=== PATIENT | female | born 1950 | race Caucasian/White ===

== ENCOUNTER → 2022-12-10 | Outpatient (CLI) | payer MEDICARE, OTHER ==
--- NOTE | 2022-12-10 12:10 | CT ---
EXAMINATION TYPE: CT chest wo con CT DLP: 112.1 mGycm, Automated exposure control for dose reduction was used. DATE OF EXAM: 12/10/2022 11:50 AM COMPARISON: None CLINICAL INDICATION:Female, 72 years old with history of J44.9 CHRONIC OBSTRUCTIVE PULMO, Z72.0 tobac co use; PHH, COPD TECHNIQUE: Multiple axial images were obtained through the chest without IV contrast. Lack of IV or o ral contrast limits evaluation of solid and hollow organ viscera. . Coronal and sagittal reformats re viewed. FINDINGS: LUNGS/ PLEURA: No pleural effusion, pneumothorax, focal consolidation. Left lower lobe 4.7 mm pulmona ry nodule (series 4, image 43). Right midlung 3.6 mm pulmonary nodule (series 4, image 22). Right upp er lobe anterior 4.0 mm pulmonary nodule (series 4, image 20). Right upper lobe 1.9 mm pulmonary nodu le (series 4, image 12). Minimal biapical pleural-parenchymal scarring. Minimal right lower lobe sub segmental atelectasis. AIRWAY: Patent and unremarkable.. HEART: Size within normal limits. No pericardial effusion. Aortic valvular mitral annulus calcificati ons. MEDIASTINUM: Suggested enlarged pretracheal lymph nodes identified measuring up to 1.3 cm short axis. Evaluation is limited due to lack of intravenous contrast. VASCULATURE: No aortic aneurysm. MUSCULOSKELETAL: No acute osseous abnormalities SOFT TISSUES/LYMPH NODES: Unremarkable. LOWER NECK: No significant findings. UPPER ABDOMEN: Calcified granuloma within the spleen. IMPRESSION: 1. Multiple enlarged nonspecific pretracheal lymph nodes. Further evaluation is recommended with cons ideration for CT chest with IV contrast. 2. Few scattered pulmonary nodules measuring up to 4.7 mm.
== END | disposition home or self-care (01) ==
LOC: RADCTMAIN 11:33
PROVIDERS: ATTEND Family Medicine
DX: J44.9 Chronic obstructive pulmonary disease, unspecified (principal); R91.8 Other nonspecific abnormal finding of lung field; R59.0 Localized enlarged lymph nodes; Z72.0 Tobacco use
CPT/HCPCS: 71250

== ENCOUNTER → 2023-01-29 | Outpatient (CLI) | payer MEDICARE, OTHER ==
[2023-01-29 14:38] LABS: African American GFR (CKD) 55 (>60 ml/min/1.73 sqM); Blood Urea Nitrogen 13 mg/dL (7-17); Non-African American GFR(CKD) 48 (>60 ml/min/1.73 sqM)
--- NOTE | 2023-02-02 08:31 | CT ---
EXAMINATION TYPE: CT chest w con DATE OF EXAM: 01/29/2023 COMPARISON: 12/10/2022 HISTORY: LOCALIZED ENLARGED LYMPH NODES AND PARATRACHEAL LYMPHADENOPATHY CT DLP: 117.40 mGycm Automated exposure control for dose reduction was used. CONTRAST: CT scan of the chest is performed with IV Contrast, patient injected with 80ML mL of Isovue 300. FINDINGS: LUNGS: Again noted are scattered sub-5 mm pulmonary nodules within the parenchymal, subpleural and pl eural locations. Mild lower lobe bronchial wall thickening noted. No increasing or new pulmonary nodu les or masses seen. No consolidation or volume loss. There is no pleural effusion or pneumothorax see n. The tracheobronchial tree is patent. MEDIASTINUM: High right paratracheal adenopathy measuring 3.5 x 2.4 cm. Low right paratracheal adenop athy measuring 2.8 x 2.7 cm increased from prior study. No hilar adenopathy seen. UPPER ABDOMEN: No significant abnormality appreciated. OTHER: No additional significant abnormality is seen. IMPRESSION: 1. Increasing right paratracheal adenopathy. Consider tissue diagnosis. 2. Stable scattered sub-5 mm pulmonary nodularity.
== END | disposition home or self-care (01) ==
LOC: RADCTMAIN 13:10
PROVIDERS: ATTEND Family Medicine
DX: R59.0 Localized enlarged lymph nodes (principal); R93.89 Abnormal findings on diagnostic imaging of other specified body structures; R91.8 Other nonspecific abnormal finding of lung field
CPT/HCPCS: 82565; 84520; 71260; 36415; Q9967

== ENCOUNTER 2023-03-10 11:27 | Day surgery (SDC) | payer MEDICARE, OTHER ==
[2023-03-08 09:00] VITALS: BMI 20.2
[~2023-03-10 11:27] MED LIST: LACTATED RINGERS 1,000 ML IV SCH
[2023-03-10] MEDS ORDERED: ONDANSETRON 4 MG/2 ML VIAL ONE (12:18)
[2023-03-10] MEDS ORDERED: IPRATROPIUM-ALBUTEROL 3 ML NEB ONE (12:18)
[2023-03-10] MEDS ORDERED: DEXAMETHASONE SOD PHOSPHATE 4 MG/ML 1 ML VIAL IVP ONE (12:23)
[2023-03-10] MEDS ORDERED: IPRATROPIUM-ALBUTEROL 3 ML NEB INHALATION STA (12:23)
[2023-03-10 12:25] VITALS: RESP 18
[2023-03-10] MEDS ORDERED: ROCURONIUM 10 MG/ML (5 ML VIAL) IV ONE (12:57)
[2023-03-10] MEDS ORDERED: PROPOFOL 10 MG/ML 20 ML VIAL IV ONE (12:57)
[2023-03-10] MEDS ORDERED: fentaNYL (PF) 50 MCG/ML 2 ML AMP ONE (12:57)
[2023-03-10] MEDS ORDERED: SUCCINYLCHOLINE CHLORIDE 200 MG/10 ML VIAL IV ONE (12:57)
[2023-03-10] MEDS ORDERED: NEOSTIGMINE 1 MG/ML 10 ML VIAL ONE (12:57)
[2023-03-10] MEDS ORDERED: LIDOCAINE 1% INJ 10MG/ML (20 ML MDV) ONE (12:57)
[2023-03-10] MEDS ORDERED: GLYCOPYRROLATE 0.2 MG/ML 2 ML VIAL ONE (12:57)
--- NOTE | 2023-03-10 13:51 | P.PCN ---
Date of Procedure: 03/10/23 Preoperative Diagnosis: Paratracheal lymphadenopathy Postoperative Diagnosis: Paratracheal lymphadenopathy Procedure(s) Performed: Endobronchial ultrasound Chest markedly less than the paratracheal lymphadenopathy Anesthesia: PRIYAA Surgeon: Diya Espinal Pathology: other Condition: stable Disposition: same day Operative Findings: After obtaining the consent the patient was taken to the OR suite he was intubated and put on MV by anesthesia then the scope was advanced to the ET tube until the Trachea was seen and it was normal and then the rigoberto appears normal then the scope advanced to the left main and TEJA LB1-LB3 were seen and no endobronchial lesions were seen then the scope advanced to the lingula and the LB4 and LB5 were seen and no endobronchial lesions were seen the scope retracted and advanced to the left lower lobes LB6 to LB12 were seen one by one and no endobronchial lesions, then the scope was retracted back to the rigoberto and advanced to the Right main and RUL RB1 and RB2 and RB3 were seen one by one and no endobronchial lesions were seen the scope then retracted and advanced to the BI and RML RB4 and RB5 were seen and no endobronchial lesions were seen then it was retracted and advanced to the RLL RB6 to RB12 were seen one by one and no endobronchial lesions. Then EBUS was used and the lymph nodes were examined. Direct measurement of the mediastinal lymph nodes revealed a and conglomeration of lymph nodes in the anterior tracheal /paratracheal area approximately originating from the level of rigoberto and extending approximately 2 cm into the distal trachea. The largest of the lymph node is around 3 cm in size. Using direct ultrasound visualization, transbronchial needle aspirate of the paratracheal lymphadenopathy was done using a 22-gauge with a Vizishot needle. No other mediastinal lymph nodes a at the various mediastinal stations identified. A total of 7-8 passes were obtained. No complications. The endobronchial ultrasound was removed and the flexible bronchoscope was inserted for therapeutic airway suctioning and cleaning. The patient was extubated and transferred to recovery in stable condition.
[2023-03-10 14:16] VITALS: TEMP 97
[2023-03-10 15:36] VITALS: BP 119/64; PULSE 77
== END 2023-03-10 15:10 | disposition home or self-care (01) ==
LOC: ORWHC2ENDO 11:27
PROVIDERS: ATTEND Internal Medicine Critical Care Medicine
DX: R59.0 Localized enlarged lymph nodes (principal); I25.10 Atherosclerotic heart disease of native coronary artery without angina pectoris; J44.9 Chronic obstructive pulmonary disease, unspecified; F17.200 Nicotine dependence, unspecified, uncomplicated; Z77.120 Contact with and (suspected) exposure to mold (toxic); Z88.9 Allergy status to unspecified drugs, medicaments and biological substances; Z88.2 Allergy status to sulfonamides; Z79.82 Long term (current) use of aspirin; Z98.890 Other specified postprocedural states; Z79.899 Other long term (current) drug therapy
CPT/HCPCS: 88305; 88173; 88184; 88185; 88342; 88341; 31629; 31652; J0330; J1100; J2710; J2405; J2001; J3010; J2704

== ENCOUNTER → 2023-03-11 | Outpatient (CLI) | payer MEDICARE, OTHER ==
--- NOTE | 2023-03-14 12:35 | PE ---
EXAMINATION TYPE: PET CT fusion skull to thigh DATE OF EXAM: 03/11/2023 COMPARISON: CT chest 12/10/2022 Prior PET/CT: None HISTORY: Lymphadenopathy TECHNIQUE: Following the intravenous administration of 10.1 mCi of F-18 FDG, whole body images are p erformed from the skull base to the midthigh. Images are reviewed on the computer in the coronal, ax ial, and sagittal planes. Reconstructed rotating images are created on independent workstation and r eviewed on the computer. A localization and attenuation correction CT is performed in conjunction w ith the PET scan. DLP: 171.69 mGycm SCAN: Initial Blood glucose: 69 mg/dL Average Mediastinum SUV: 2.2 Average Liver SUV: 2.25 FINDINGS: NECK: There is a prominent lymph node posterior to the sternocleidomastoid muscle near the right sup raclavicular region, image 44, SUV 15.74. Small posterior right neck triangle uptake is present, imag e 44, SUV 3.73. There is additional intense uptake within the right supraclavicular region, image 48, SUV 14.84. Some milder abnormal uptake is within the left supraclavicular region, image 50, SUV 7.38 . THORAX: Abnormal uptake is in the right axillary region SUV 5.59, image 53. Abnormal uptake is within the right supraclavicular region inferior to the thyroid, image 53, SUV 13.87. Additional left supra clavicular adenopathy is present with SUV 9.16. Small left axillary lymph node with uptake is present SUV 4.44. There is intense uptake within the superior mediastinum, SUV 9.03 example image 68. Pretracheal lymph adenopathy is present, SUV 6.03, image 77. Mild uptake is within the subcutaneous carinal region, image 84, SUV 3.8. There may be some mild uptake at the left costovertebral junction, image 101, SUV 3.93. This could be related to degenerative change. ABDOMEN: Abnormal uptake is in the celiac axis region, image 132, SUV 6.29. There is intense uptake within the hepatic flexure, example image 166, SUV 8.47. There are additional areas of uptake scattered within the colon with a more typical normal uptake. PELVIS: Subcutaneous uptake is within the inferior gluteal fold, image 218, SUV 2.54. OSSEOUS STRUCTURES: There is a focus of radiotracer within the left pubic symphysis, image 218, SUV [address]: No suspicious acute changes. The abnormal lymphadenopathy is poorly defined on the l ocalization CT. COMPARISON: Lymphadenopathy is evident on the comparison study. This may be increasing from the comp arison study. IMPRESSION: 1. Multiple focal intense areas of uptake within the lower neck, supraclavicular regions bilaterally, axillary regions bilaterally, mediastinum and subcarinal regions suspicious for neoplasm within mult iple lymph node chains. 2. Abnormal uptake within the celiac axis region likely related to abnormal adenopathy. 3. Questionable abnormal uptake versus normal uptake within the hepatic flexure. Consider colonoscopy for additional evaluation. 4. Uptake within the medial left pubic symphysis suspicious for metastatic disease. 5. Subcutaneous uptake posterior midline gluteal fold may be metastasis or infection.
== END | disposition home or self-care (01) ==
LOC: RADPETMAIN 12:09
PROVIDERS: ATTEND Internal Medicine Critical Care Medicine
DX: R59.0 Localized enlarged lymph nodes (principal)
CPT/HCPCS: 78815; A9552

== ENCOUNTER → 2023-06-17 | Outpatient (CLI) | payer MEDICARE, OTHER | END | disposition home or self-care (01) | LOC: RADCTMAIN 09:21 | PROVIDERS: ATTEND Internal Medicine Critical Care Medicine | DX: Z53.9 Procedure and treatment not carried out, unspecified reason (principal) ==

== ENCOUNTER → 2023-06-17 | Outpatient (CLI) | payer MEDICARE, OTHER ==
[2023-06-17 10:29] LABS: African American GFR (CKD) 56 (>60 ml/min/1.73 sqM); Blood Urea Nitrogen 15 mg/dL (7-17); Non-African American GFR(CKD) 49 (>60 ml/min/1.73 sqM)
--- NOTE | 2023-06-17 12:27 | CT ---
EXAMINATION: CT CHEST, ABDOMEN AND PELVIS WITH IV CONTRAST DATE OF EXAMINATION: 06/17/2023. COMPARISON: PET/CT on 03/11/2023.. INDICATION: Lymphadenopathy. PROCEDURE: Axial CT of the chest, abdomen and pelvis was performed following the intravenous adminis tration of 80 ml Isovue 300. Coronal and sagittal reformats were performed. CT dose lowering techniqu es were used, to include: automated exposure control, adjustment for patient size, and/or use of iter ative reconstruction. FINDINGS: CHEST: Mediastinum and Bessy: Mediastinal adenopathy is again seen. There is a lymph node in the presacral re gion measuring 2.3 cm in diameter, previously approximately 1.8 cm in diameter. The supraclavicular r egion is not well evaluated on this examination Pleural and Pericardial spaces: There are no pleural or pericardial effusions. Cardiovascular: There is mild vascular calcification throughout the thoracic aorta without evidence o f aneurysmal dilation or dissection. Mild coronary artery calcification is seen in the left anterior descending. Pulmonary Artery: There are no central pulmonary arterial filling defects. Lung Parenchyma and Airways: 2 mm nodule in the right upper lobe on series 5 image 22 is unchanged. T here is some scattered mild bronchial wall thickening and inflammatory airway changes otherwise noted . 4.6 cm left lower lobe nodule on series 5 image 40 is unchanged. ABDOMEN: Liver and Biliary system: Normal. Adrenal glands: Normal. Kidneys and ureters: Normal. Spleen: There is a calcified granuloma within the spleen.. Pancreas: Normal. Gallbladder: Normal. Lymph nodes, Peritoneum and mesentery: There is no mesenteric or retroperitoneal lymphadenopathy. Gastrointestinal tract: There are no dilated loops of bowel or free intraperitoneal air. . The appe ndix is normal. There is moderate to significant sigmoid colonic diverticulosis without evidence of d iverticulitis. Aorta/IVC: There is mild vascular calcification throughout the abdominal aorta without evidence of aneurysmal dilation or dissection.. IVC normal. Abdominal wall: Normal. PELVIS: Fluid: There is no free fluid in the pelvis. Lymph Nodes: There is no pelvic or inguinal lymphadenopathy.. Urinary bladder: Normal. BONES: Scattered degenerative disc and facet changes are seen throughout the spine. There are no acu te osseous abnormalities.. ADDITIONAL SIGNIFICANT FINDINGS: None. IMPRESSION: 1. Increase size of pretracheal lymph node. 2. Supra clavicular region is not well evaluated on this examination. 3. There does not appear to be definitive adenopathy within the abdomen or pelvis. 4. Diverticulosis without evidence of diverticulitis. 5. Unchanged pulmonary nodules.
== END | disposition home or self-care (01) ==
LOC: RADCTMAIN 09:47
PROVIDERS: ATTEND Internal Medicine Hematology & Oncology
DX: K57.30 Diverticulosis of large intestine without perforation or abscess without bleeding (principal); J44.9 Chronic obstructive pulmonary disease, unspecified; R59.0 Localized enlarged lymph nodes; R91.8 Other nonspecific abnormal finding of lung field
CPT/HCPCS: 82565; 84520; 71260; 74177; 36415; Q9967

== ENCOUNTER → 2023-07-22 | Outpatient (CLI) | payer MEDICARE, OTHER ==
[2023-07-22 19:28] LABS: Appearance,Urine Cloudy (Clear); Bilirubin,Urine Negative (Negative); Blood,Urine Negative (Negative); Color,Urine Yellow (Yellow); Ketones,Urine Negative (Negative); Nitrite,Urine Negative (Negative); PH, Urine 6.5; Specific Gravity,Urine 1.012 (1.001-1.030); Urobilinogen,Urine 0.2 E.U./DL
[2023-07-22 19:33] LABS: Bacteria,Urine 2+ (None Seen)
[2023-07-22 19:39] LABS: Basophils # (A) 0.11 X 10*3/uL (0.00-0.10); Basophils % (A) 1.3 %; Eosinophils # (A) 0.68 X 10*3/uL (0.04-0.35); Eosinophils % (A) 8.2 %; HCT 35.6 % (37.2-46.3); HGB 10.8 g/dL (12.0-15.0); Lymphocytes # (A) 0.95 X 10*3/uL (0.90-5.00); Lymphocytes % (A) 11.4 %; MCHC 30.3 g/dL (32.0-37.0); MCV 85.6 FL (80.0-97.0); Mean Platelet Volume 12.2 FL (9.5-12.2); Monocytes # (A) 0.77 X 10*3/uL (0.20-1.00); Monocytes % (A) 9.3 %; NRBC Per 100 WBC 0 X 10*3/uL (0.00-0.01); Neutrophils # (A) 5.78 X 10*3/uL (1.80-7.70); Neutrophils % (A) 69.6 %; Platelet Count 339 X 10*3/uL (140-440); RBC 4.16 X 10*6/uL (4.10-5.20); RDW 15.8 % (11.5-14.5); WBC 8.31 X 10*3/uL (4.50-10.00)
[2023-07-22 21:11] LABS: Chloride 107 mmol/L (96-109); Glucose 81 mg/dL (70-110); Potassium 4.5 mmol/L (3.5-5.5); Sodium 141 mmol/L (135-145)
== END | disposition home or self-care (01) ==
LOC: LABPAT 12:39
PROVIDERS: ATTEND Thoracic Surgery (Cardiothoracic Vascular Surgery)
DX: Z01.812 Encounter for preprocedural laboratory examination (principal); R59.0 Localized enlarged lymph nodes; R58 Hemorrhage, not elsewhere classified; R53.83 Other fatigue; Z79.899 Other long term (current) drug therapy
CPT/HCPCS: 36415; 80051; 81001; 82565; 82947; 84520; 85025; 85730; 86850; 86900; 86901; 87086

== ENCOUNTER 2023-08-02 11:13 | Day surgery (SDC) | payer MEDICARE, OTHER ==
[~2023-08-02 11:13] MED LIST changes: -LACTATED RINGERS 1,000 ML IV SCH; +MIDAZOLAM 2 MG/2 ML VIAL IV PRN
[2023-08-02] MEDS: LACTATED RINGERS 1,000 ML IV SCH (11:37)
[2023-08-02] MEDS: ONDANSETRON 4 MG/2 ML VIAL IVP ONE (11:55)
[2023-08-02] MEDS: DEXAMETHASONE SOD PHOSPHATE 4 MG/ML 1 ML VIAL IV ONE (11:55)
[2023-08-02] MEDS ORDERED: SUGAMMADEX SODIUM 200 MG/2 ML SDV IV ONE (13:10)
[2023-08-02] MEDS ORDERED: SUCCINYLCHOLINE CHLORIDE 200 MG/10 ML VIAL IV ONE (13:10)
[2023-08-02] MEDS ORDERED: LIDOCAINE 1% INJ 10MG/ML (20 ML MDV) ONE (13:10)
[2023-08-02] MEDS ORDERED: ROCURONIUM 10 MG/ML (5 ML VIAL) IV ONE (13:10)
[2023-08-02] MEDS ORDERED: fentaNYL (PF) 50 MCG/ML 2 ML AMP ONE (13:10)
[2023-08-02] MEDS ORDERED: HYDROmorphone (PF) 1 MG/ML ONE (13:10)
[2023-08-02] MEDS ORDERED: PROPOFOL 10 MG/ML 20 ML VIAL IV ONE (13:10)
--- NOTE | 2023-08-02 14:15 | P.OP ---
Date of Procedure: 08/02/23 Preoperative Diagnosis: Mediastinal Lymphadenoapthy Postoperative Diagnosis: Same Procedure(s) Performed: Mediastinoscopy with Biopsy Anesthesia: RIKY Surgeon: Osbaldo Marquez Estimated Blood Loss (ml): 15 Pathology: other (Pre-tracheal lymph node for fresh (flow), permanent and culture) Condition: stable Disposition: PACU Indications for Procedure: This patient is a 73 year-old female who was noted to have mediastinal lymphadenopathy on CT Chest. EBUS was non-diagnostic. She is here for mediastinoscopy Operative Findings: Large pre-tracheal lymph node biopsied. Description of Procedure: The patient was brought back to the operating room and placed in the supine position. She was intubated and underwent general anesthesia. Antibiotics were given and she was prepped from the chin to the umbilicus. A transverse incision was made one finger breadth above the sternal notch. This was carried down through the subcutaneous tissues and the strap muscle was divided in the midline. The pre-tracheal fascia was incised with scissor and the isamar scissor was used to create the plane all the way down the trachea. The mediastinoscope was inserted and the pre-tracheal node was visualized. This was grasped with biopsy forceps. Multiple biopsies were taken. Area was packed with surgicel and no bleeding was noted. The strap muscle and deep dermis was closed with 2-0 vicryl and skin closed with monocryl and glue.
[2023-08-02] MEDS: HYDROmorphone 0.5 MG/0.5 ML SYRINGE IVP PRN (14:43)
[2023-08-02 15:08] VITALS: RESP 16; TEMP 97
[2023-08-02 16:26] VITALS: BP 149/66; PULSE 80
--- NOTE | 2023-08-02 18:35 | XR ---
EXAMINATION TYPE: XR chest 1V DATE OF EXAM: 08/02/2023 3:24 PM CLINICAL INDICATION:Female, 73 years old with history of Post mediastinoscopy; COMPARISON: Chest radiographs from 01/22/2023. TECHNIQUE: XR chest 1V Frontal view of the chest. FINDINGS: Lungs/Pleura: There is no evidence of pleural effusion, focal consolidation, or pneumothorax. Pulmonary vascularity: Unremarkable. Heart/mediastinum: Cardiomediastinal silhouette is unremarkable. Musculoskeletal: No acute osseous pathology. Other findings: None IMPRESSION: No acute cardiopulmonary disease/process. No evidence for pneumothorax.
== END 2023-08-02 16:43 | disposition home or self-care (01) ==
LOC: OR 11:13
PROVIDERS: ATTEND Thoracic Surgery (Cardiothoracic Vascular Surgery)
DX: L92.9 Granulomatous disorder of the skin and subcutaneous tissue, unspecified (principal); I35.0 Nonrheumatic aortic (valve) stenosis; J44.9 Chronic obstructive pulmonary disease, unspecified; F17.210 Nicotine dependence, cigarettes, uncomplicated; Z86.73 Personal history of transient ischemic attack (TIA), and cerebral infarction without residual deficits; Z79.51 Long term (current) use of inhaled steroids
CPT/HCPCS: 88305; 87070; 87205; 87075; 87116; 87102; 87206; 71045; 39402; J0330; J1100; J0690; J2405; J2001; J3010; J1170 ×2; J2704; 88312

== ENCOUNTER → 2023-09-14 | Outpatient (CLI) | payer MEDICARE, OTHER ==
[2023-09-14 13:36] LABS: African American GFR (CKD) 54 (>60 ml/min/1.73 sqM); Blood Urea Nitrogen 15 mg/dL (7-17); Non-African American GFR(CKD) 47 (>60 ml/min/1.73 sqM)
--- NOTE | 2023-09-16 17:12 | CT ---
EXAMINATION TYPE: CT ChestAbdPelvis w con CT DLP: 1009 mGycm, Automated exposure control for dose reduction was used. DATE OF EXAM: 09/14/2023 2:18 PM COMPARISON: 06/22/2023 CLINICAL INDICATION:Female, 73 years old with history of R59.0 LOCALIZED ENLARGED LYMPH NODES; PHH, L ocalized enlarged lymph nodes Technique: CT ChestAbdPelvis w con; Multiple axial images were obtained. Two-dimensional coronal and sagittal reconstructions were obtained. Contrast used:100 mL of Isovue 300 with IV Contrast, Oral contrast used: with Oral Contrast Findings: CHEST: LUNGS/ PLEURA: The lung parenchyma appears unremarkable. AIRWAY: Patent and unremarkable. HEART: Size within normal limits. Aortic valve leaflet calcifications are mild to moderate. Coronary artery atherosclerosis is mild. There is mitral valve annular calcifications. MEDIASTINUM: Conglomerate lymphadenopathy within the mediastinum in the right paratracheal region sagrario suring 33 right 21 mm not significantly changed grossly. Similar lymph nodes may be increased size. VASCULATURE: No aortic aneurysm. MUSCULOSKELETAL: Moderate disc degeneration changes are present throughout the thoracolumbar spine. SOFT TISSUES/LYMPH NODES: There is prominent right low neck lymph node measuring 12 mm in short axis this was FDG avid on prior PET. Other lymph nodes partially visualized in the neck measuring up to 11 mm series 3 image 2 left lower neck lymph node measuring 7 mm in short axis. LOWER NECK: No significant findings. ABDOMEN: ABDOMEN LIVER: Unremarkable GALLBLADDER AND BILE DUCTS: Unremarkable. PANCREAS: Unremarkable. SPLEEN: Unremarkable. ADRENAL GLANDS: Unremarkable. KIDNEYS AND URETERS: No evidence of hydronephrosis or renal calculus. The ureters are unremarkable. PELVIS BLADDER: Unremarkable REPRODUCTIVE: Unremarkable. ABDOMEN & PELVIS STOMACH AND BOWEL: No evidence of bowel obstruction. Scattered colonic diverticula.r PERITONEUM: No evidence of pneumoperitoneum or free fluid. VASCULATURE: No evidence of aortic aneurysm. MUSCULOSKELETAL: No acute osseous abnormalities. Moderate disc degeneration changes are present throu ghout the thoracolumbar spine. LYMPH NODES: Seth hepatis lymph node measuring 17 mm in short axis which was FDG avid on prior PET. SOFT TISSUE/ABDOMINAL WALL: Unremarkable IMPRESSION: Persistent bilateral neck and mediastinal lymphadenopathy not significantly changed. Single upper abd ominal lymph nodes near the seth hepatis is also present. Follow-up PET/CT may be of benefit for com parison the metabolic activity.
== END | disposition home or self-care (01) ==
LOC: RADCTMAIN 11:53
PROVIDERS: ATTEND Internal Medicine Hematology & Oncology
DX: R59.0 Localized enlarged lymph nodes (principal); J44.9 Chronic obstructive pulmonary disease, unspecified
CPT/HCPCS: 82565; 84520; 71260; 74177; 36415; Q9967

== ENCOUNTER → 2023-09-24 | Day surgery (SDC) | payer MEDICARE, OTHER ==
[~2023-09-24] MED LIST changes: -MIDAZOLAM 2 MG/2 ML VIAL IV PRN; +PROPOFOL 10 MG/ML 20 ML VIAL IV ONE; +ePHEDrine 50 MG/ML 1 ML VIAL ONE
[2023-09-24] MEDS: IV FLUID CONTINUATION 1,000 ML IV ONE (10:37)
[2023-09-24] MEDS: LACTATED RINGERS 1,000 ML IV SCH (10:50)
--- NOTE | 2023-09-24 11:16 | P.PCN ---
Date of Procedure: 09/24/23 Procedure(s) Performed: Brief history: Patient is a pleasant 73-year-old white female scheduled for an elective upper endoscopy as well as colonoscopy as a part of evaluation of abnormal CAT scan and iron deficiency anemia Procedure performed: Esophagogastroduodenoscopy with biopsy Colonoscopy with biopsy and snare polypectomy Preoperative diagnosis: Abnormal CAT scan of the abdomen showing thickening of the hepatic flexure Iron deficiency anemia Anesthesia: MAC Procedure: After informed consent was obtained from the patient was brought into the endoscopy unit and IV sedation was administered by anesthesia under continuous monitoring. Initially upper endoscopy was done. The Olympus GF 160 video endoscope was inserted inserted into the mouth and esophagus intubated without any difficulty and was gradually advanced into the stomach and duodenum and carefully examined. The bulb and second part of the duodenum appeared normal. Biopsies were done from the duodenum to evaluate for celiac disease. The scope was then withdrawn into the stomach adequately insufflated with air and upon careful examination the antrum had many areas of erythema consistent with gastritis and biopsies were done from this area. Body, cardia and fundus appeared normal. The scope was then withdrawn into the esophagus. Small hiatal hernia noted.. The GE junction was located at 40 cm to the incisors. It appeared regular with no erythema erosions or ulcerations. Rest of the esophagus appeared normal. Patient tolerated the procedure well. At this time the patient continued to remain sedation. Initial digital rectal examination was normal. Olympus CF 160 video colonoscope was then inserted into the rectum and gradually advanced to the cecum without any difficulty. Careful examination was performed as the scope was gradually being withdrawn. The prep was fair. t. The cecum, appeared normal. The ascending colon there was a 3 mm polyp that was removed by cold biopsy. In the hepatic flexure there was a 7 mm polyp removed by cold snare polypectomy. Rest of the ascending colon, transvers e colon, descending colon, sigmoid colon and rectum appeared normal. Retroflexion was performed in the rectum and no lesions were noted. Scattered sigmoid diverticulosis. Patient tolerated the procedure well. Impression: 1. Upper endoscopy revealed small hiatal hernia and mild antral gastritis 2. Colonoscopy revealed 3 mm ascending colon polyp status post cold biopsy and a 7 mm hepatic flexure polyp status post polypectomy and scattered sigmoid diverticulosis Recommendations: Findings of this examination were discussed with the patient as well as her family. She was advised to follow-up with the biopsy results.
[2023-09-24 11:30] VITALS: BP 108/52; PULSE 83; RESP 16; TEMP 97.8
== END ==
LOC: ORWHC2ENDO 10:15
PROVIDERS: ATTEND Internal Medicine Gastroenterology
DX: K29.50 Unspecified chronic gastritis without bleeding (principal); D12.3 Benign neoplasm of transverse colon; K44.9 Diaphragmatic hernia without obstruction or gangrene; K57.30 Diverticulosis of large intestine without perforation or abscess without bleeding; D50.9 Iron deficiency anemia, unspecified; J44.9 Chronic obstructive pulmonary disease, unspecified; I35.0 Nonrheumatic aortic (valve) stenosis; Z86.73 Personal history of transient ischemic attack (TIA), and cerebral infarction without residual deficits; Z79.51 Long term (current) use of inhaled steroids; Z79.899 Other long term (current) drug therapy; Z79.1 Long term (current) use of non-steroidal anti-inflammatories (NSAID); Z88.1 Allergy status to other antibiotic agents; Z88.8 Allergy status to other drugs, medicaments and biological substances
CPT/HCPCS: 88305; 45380; 45385; 43239; J2704

== ENCOUNTER → 2023-11-15 | Outpatient (CLI) | payer MEDICARE, OTHER ==
--- NOTE | 2023-11-15 14:30 | US ---
EXAMINATION TYPE: US arterial LE single level DATE OF EXAM: 11/15/2023 2:09 PM CLINICAL INDICATION: Female, 73 years old with history of R25.2 LEG CRAMPS; Left leg numbness History of: Smoker: Current smoker Hypertension: No Diabetic: No Hyperlipidemia: No TIA/CVA: No Previous Vascular Surgery: No CAD: No NC: No Vascular Ulcers: No Claudication: No Gangrene: No Doppler Waveforms: Right: Multiphasic Left: Multiphasic Right Brachial Pressure: 150 Left Brachial Pressure: 140 Ankle-Brachial Indices: Right: 1.11 Left: 1.08 IMPRESSION: Normal ankle-brachial indices bilaterally.
--- NOTE | 2023-11-15 14:36 | US ---
EXAMINATION TYPE: US kidneys/renal and bladder DATE OF EXAM: 11/15/2023 COMPARISON: CT chest abdomen pelvis 09/14/2023 CLINICAL INDICATION: Female, 73 years old with history of N28.9 ABNORMAL KIDNEY FUNCTION; EXAM MEASUREMENTS: Right Kidney: 9.1 x 4.2 x 3.2 cm Left Kidney: 11.5 x 3.7 x 3.8 cm Right Kidney: No hydronephrosis or masses seen Left Kidney: No hydronephrosis or masses seen. 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 There is no evidence for hydronephrosis at this point in time. No nephrolithiasis is seen. Corticom edullary differentiation is maintained. No masses are identified. Duplex left kidney suggested howeve r not visualized on prior CT. The urinary bladder was not distended and therefore not visualized. IMPRESSION: No hydronephrosis or nephrolithiasis.
--- NOTE | 2023-11-15 15:21 | BD ---
EXAMINATION TYPE: Axial Bone Density DATE OF EXAM: 11/15/2023 CLINICAL HISTORY: 73 years old Female. ICD-10 CODE: Z78.0 ASYMPTOMACTIC MENOPAUSE Height: 62.5 Weight: 117lbs FRAX RISK QUESTIONS: Alcohol (3 or more units per day): No Family History (Parent hip fracture): Unknown Glucocorticoids (More than 3mos): No (Ex: prednisone, prednisolone, methylprednisolone, dexamethasone, and hydrocortisone). History of Fracture in Adulthood: Yes Secondary Osteoporosis: 1. Type 1 Diabetes: No 2. Hyperthyroidism: No 3. Menopause before 45: No 4. Malnutrition: No 5. Chronic liver disease: No Rheumatoid Arthritis: No Current Tobacco Use: Yes RISK FACTORS HISTORY OF: Hip Fracture (Right/Left): No Spine Fracture: No History of Wrist Fracture: No Surgery to Spine/Hip(right/left)/Wrist (right/left): No MEDICATIONS: Thyroid Medications: No Osteoporosis Medications: No EXAM MEASUREMENTS: Bone mineral densitometry was performed using the NextDigest System. Bone mineral density as measured about the Lumbar spine is: ----- L1-L4(G/cm2): 1.020 T Score Values are as follows: ----- L1: -3.2 ----- L2: -1.5 ----- L3: -0.4 ----- L4: -0.8 ----- L1-L4: -1.3 Z Score Values are as follows: ----- L1: -1.1 ----- L2: 0.6 ----- L3: 1.8 ----- L4: 1.3 ----- L1-L4: 0.8 Baseline @MPH Bone mineral density about the R hip (g/cm2): 0.621 Bone mineral density about the L hip (g/cm2): 0.665 T Score values are as follows: -----R Neck: -2.8 -----L Neck: -2.1 -----R Total: -3.1 -----L Total: -2.7 Z Score values are as follows: -----R Neck: -0.7 -----L Neck: 0.0 -----R Total: -1.1 -----L Total: -0.8 Baseline @MPH FRAX%s: The graph provided illustrates a 27.6% chance for a major osteoporotic fx and a 13.8% chance for the hips probability for fx in 10 years time. IMPRESSION: Osteoporosis (T Score less than -2.5). There is increased fracture risk and therapy is usually indicated based on age. Re-Screen 1-2 years. NOTE: T-SCORE=SD OF THE YOUNG ADULT MEAN.
--- NOTE | 2023-11-16 12:57 | MM ---
Reason for Exam: Screening (asymptomatic). Patient History: Menarche at age 14. First Full-Term at age 25. Postmenopausal. Patient has history of breast feeding. Risk Values: Joan 5 year model risk: 1.8%. NCI Lifetime model risk: 4.4%. Tissue Density: There are scattered areas of fibroglandular density. Findings: Analyzed By CAD. There is no suspicious group of microcalcifications or new suspicious mass in either breast. Asymmetric density upper left MLO view 5 cm from the nipple. Overall Assessment: Incomplete: need additional imaging evaluation, BI-RAD 0 Management: Diagnostic Mammogram of the left breast. . Patient should continue monthly self-breast exams. A clinical breast exam by your physician is recommended on an annual basis. This exam should not preclude additional follow-up of suspicious palpable abnormalities. Note on Joan scores and lifetime risk: 1. A Joan score greater than 3% is considered moderate risk. If this is the case, consider specialist referral to assess eligibility for a risk reducing agent. 2. If overall lifetime risk for the development of breast cancer is 20% or higher, the patient may qualify for future screening with alternating mammogram and breast MRI. Electronically signed and approved by: Artur Cook M.D. Radiologis
== END | disposition home or self-care (01) ==
LOC: RADMAMWWP 12:58
PROVIDERS: ATTEND Family Medicine
DX: Z12.31 Encounter for screening mammogram for malignant neoplasm of breast (principal); R25.2 Cramp and spasm; R92.323 Mammographic fibroglandular density, bilateral breasts; M81.0 Age-related osteoporosis without current pathological fracture; M85.89 Other specified disorders of bone density and structure, multiple sites; Z78.0 Asymptomatic menopausal state
CPT/HCPCS: 76770; 77063; 77067; 77080; 93922

== ENCOUNTER → 2023-11-23 | Outpatient (CLI) | payer MEDICARE, OTHER ==
--- NOTE | 2023-11-23 13:18 | MM ---
Reason for Exam: Additional evaluation requested from abnormal screening. Last screening mammogram was performed less than 1 month ago. Patient History: Menarche at age 14. First Full-Term at age 25. Postmenopausal. Patient has history of breast feeding. Risk Values: Joan 5 year model risk: 1.8%. NCI Lifetime model risk: 4.4%. Prior Study Comparison: 11/15/2023 Bilateral MG 3D screening mammo w/cad, [facility]. Tissue Density: Left: The breasts are heterogeneously dense, which may obscure small masses. Findings: Analyzed By CAD. Asymmetric density upper outer left breast is less conspicuous on the additional images obtained and appears essentially stable dating back to 2021. Precautionary six-month follow-up recommended. Overall Assessment: Probably benign, BI-RAD 3 Management: Diagnostic Mammogram of the left breast in 6 months. . Results were given to the patient verbally at the time of exam. Patient should continue monthly self-breast exams. A clinical breast exam by your physician is recommended on an annual basis. This exam should not preclude additional follow-up of suspicious palpable abnormalities. Note on Joan scores and lifetime risk: 1. A Joan score greater than 3% is considered moderate risk. If this is the case, consider specialist referral to assess eligibility for a risk reducing agent. 2. If overall lifetime risk for the development of breast cancer is 20% or higher, the patient may qualify for future screening with alternating mammogram and breast MRI. Electronically signed and approved by: Artur Cook M.D. Radiologis
== END | disposition home or self-care (01) ==
LOC: RADMAMWWP 10:50
PROVIDERS: ATTEND Family Medicine
DX: R92.8 Other abnormal and inconclusive findings on diagnostic imaging of breast (principal); R92.332 Mammographic heterogeneous density, left breast; Z78.0 Asymptomatic menopausal state
CPT/HCPCS: 77065; G0279; 77061